=== PATIENT | male | born 1975 | race American Indian/Alaskan Native ===

== ENCOUNTER → 2018-09-02 | Outpatient (CLI) | payer MEDICAID | LOC: GIMAGING 09:49 → EDSTATUS 15:55 | PROVIDERS: ATTEND Family Medicine | DX: R05 Cough (principal); R91.8 Other nonspecific abnormal finding of lung field | CPT/HCPCS: 71046-PO ==

== ENCOUNTER → 2018-10-04 | Outpatient (CLI) | payer MEDICAID | LOC: GIMAGING 10:11 → EDSTATUS 16:42 | PROVIDERS: ATTEND Family Medicine | DX: J18.9 Pneumonia, unspecified organism (principal) | CPT/HCPCS: 71046-PO ==